=== PATIENT | female | born 1980 | race Caucasian/White ===

== ENCOUNTER 2016-10-13 21:13 | Emergency (ER) | payer SELFPAY ==
[2016-10-13 21:20] VITALS: BP 109/51; BMI 21.4
[2016-10-13] MEDS ORDERED: TORADOL 30 MG VIAL IVP ONE (21:44)
--- NOTE | 2016-10-13 21:45 | DR.GENAD ---
HPI - PCP Primary Care Physician: nfd - Complaint/Symptoms Chief Complaint Doctors Comments: Complain of right flank pain onset sever hours ago. Pain is severe, not relieve by medication, History of stones. Chief Complaint:: pt c/o rt flank pain and urinary frequency - Source History Provided: Patient - Mode of Arrival Mode of Arrival: Ambulatory - Timing Onset of Chief Complaint: 10/13/16 PMH - PMH Past Medical History: Yes Past Medical History: Kidney Stones Past Surgical History: Yes Surgical History: Appendectomy - Family History History of Family Medical Conditions: Yes Family Medical History: Cancer, Coronary Artery Disease, Heart Failure - Social History Does any household member use tobacco: Yes Alcohol Use: None Do you use any recreational Drugs:: No Lives With: Family Lives Where: Home - infectious screening In the last 2 months have you had wt loss of >10#?: NO Have you had fever, night sweats or hemotysis?: No Have you traveled outside the country in the last 6 months?: No Isolation: Standard ROS - Review of Systems Constitutional: No Symptoms Reported Eyes: No Symptoms Reported ENTM: No Symptoms Reported Respiratoy: No Symptoms Reported Cardiovascular: No Symptoms Reported Gastrointestinal/Abdominal: No Symptoms Reported Genitourinary: No Symptoms Reported Neurological: No Symptoms Reported Musculoskeletal: No Symptoms Reported Integumentary: No Symptoms Reported Hematologic/Lymphatic: No Symptoms Reported Endocrine: No Symptoms Reported Psychiatric: No Symptoms Reported All Other Systems: Reviewed and Negative PE - Vital Signs Vitals: Temperature 97.9 F Pulse Rate 100 Respiratory Rate 18 Blood Pressure [Left Arm] 129/87 Blood Pressure 109/51 O2 Sat by Pulse Oximetry 100 - General Limitations: No Limitations General Appearance: Alert, In No Apparent Distress, Anxious - Head Head Exam: Normal Inspection, Atraumatic - Eyes Eye exam: Normal Appearance, PERRL, EOMI - ENT ENT Exam: Normal Exam External Ear Exam: Normal External Inspection TM/Canal Exam: Bilateral Normal Nose Exam: Normal Nose Exam Mouth Exam: Normal Inspection Throat Exam: Normal Inspection - Neck Neck Exam: Normal Inspection - Chest Chest Inspection: Normal Inspection - Respiratory Respiratory Exam: Normal Lung Sounds Bilat Respiratory Exam: Bilateral Clear to Auscultation - Cardiovascular Cardiovascular Exam: Regular Rate, Normal Rhythm - Abdominal Exam Abdominal Exam: Soft, Tenderness (RLQ), Other (right flank pain) - Neurologic Neurological Exam: Alert, Oriented X3, CN II-XII Intact - Psychiatric Psychiatric Exam: Normal Affect, Normal Mood Course - Reevaluation 1st: Improved ROR - Labs Reviewed Laboratory Results Reviewed?: Yes (Urine: 5+blood, 15-20 wbc) Laboratory: Specimen Type Clean catch urine 10/13/16 21:19 Urine Color [place] (YELLOW) 10/13/16 21:19 Urine Appearance Clear (CLEAR) 10/13/16 21:19 Urine pH 7.0 (5.0 - 8.0) 10/13/16 21:19 Ur Specific [place] 1.000 (1.000-1.030) 10/13/16 21:19 Urine Protein 1+ (NEGATIVE) 10/13/16 21:19 Urine Glucose (UA) Negative (NEGATIVE) 10/13/16 21:19 Urine Ketones Negative (NEGATIVE) 10/13/16 21:19 Urine Occult Blood 5+ (NEGATIVE) 10/13/16 21:19 Urine Nitrite Negative (NEGATIVE) 10/13/16 21:19 Urine Bilirubin Negative (NEGATIVE) 10/13/16 21:19 Urine Urobilinogen Normal (NORMAL) 10/13/16 21:19 Ur Leukocyte Esterase Negative (NEGATIVE) 10/13/16 21:19 Urine RBC None seen /HPF (NEGATIVE) 10/13/16 21:19 Urine WBC 15-20 /HPF (NEGATIVE) 10/13/16 21:19 Ur Squamous Epith Cells Rare /HPF (NEGATIVE) 10/13/16 21:19 Urine Bacteria Trace /HPF (NEGATIVE) 10/13/16 21:19 Ur Culture Indicated? No/not indicated 10/13/16 21:19 - XRAY XRAY Interpreted by: Radiologist (CT Abdomen/Pelvis: Normal abdomen and pelvis) - Diagnosis Discharge Problem: UTI (urinary tract infection) Qualifiers: Urinary tract infection type: acute cystitis Hematuria presence: with hematuria Qualified Code(s): N30.01 - Acute cystitis with hematuria - Discharge Plan Condition: Stable - Follow ups/Referrals Follow ups/Referrals: NFD,None [Primary Care Provider] - 3 days - Instructions
[2016-10-13] MEDS ORDERED: NS 1000 ML 1,000 ML ONE (21:46)
[2016-10-13] MEDS ORDERED: TORADOL 30 MG VIAL ONE (21:46)
[2016-10-13 21:58] LABS: BILIRUBIN,URINE NEGATIVE (NEGATIVE); BLOOD/HEMOGLOBIN,URINE 5+ (NEGATIVE); GLUCOSE, URINE NEGATIVE (NEGATIVE); KETONES,URINE NEGATIVE (NEGATIVE); LEUKOCYTE ESTERASE ,URINE NEGATIVE (NEGATIVE); NITRITES,URINE NEGATIVE (NEGATIVE); PROTEIN,URINE 1+ (NEGATIVE); UROBILINOGEN,URINE NORMAL (NORMAL)
[2016-10-13] MEDS ORDERED: NS 1000 ML 1,000 ML IV SCH (22:00)
[2016-10-13 22:10] LABS: APPEARANCE,URINE CLEAR (CLEAR); COLOR,URINE PINK (YELLOW)
[2016-10-13 22:11] LABS: BACTERIA,URINE TRACE /HPF (NEGATIVE); RBC,URINE NONE SEEN /HPF (NEGATIVE); SQUAMOUS EPITHELIAL CELL,UR RARE /HPF (NEGATIVE)
[2016-10-13] MEDS ORDERED: MORPHINE SULFATE INJ 4 MG IVP ONE (22:12)
[2016-10-13] MEDS ORDERED: MORPHINE SULFATE INJ 4 MG ONE (22:14)
--- NOTE | 2016-10-13 23:10 | CT ---
EXAM: CT ABDOMEN AND PELVIS WITHOUT CONTRAST INDICATION: Right flank pain COMPARISION: No priors available for comparison TECHNIQUE: Axial CT examination of the abdomen and pelvis was performed without intravenous contrast. Coronal a nd sagittal reconstructions were created using the axial data. FINDINGS: The lung bases are clear. The liver, spleen, pancreas, adrenal glands, kidneys, and gallbladder are normal. There is no evidence of biliary ductal dilatation. The aorta and inferior vena cava are norm al in caliber. The bowel loops are nonobstructed. No abnormal mass, lymphadenopathy, or fluid collection. Urinary bladder is normal. The appendix has been removed. The uterus and adnexa appear unremarkable . The regional skeleton is intact. IMPRESSION: Normal CT examination of the abdomen and pelvis. Reported By:
== END 2016-10-13 23:25 | disposition home or self-care (01) ==
LOC: ER 21:13
DX: N30.01 Acute cystitis with hematuria (principal); R10.31 Right lower quadrant pain
CPT/HCPCS: 74176; 81001; 96365; 96367; 96374; 96375; 99283; A4222; J1885; J2270

== ENCOUNTER 2016-11-27 18:47 | Emergency (ER) | payer SELFPAY ==
[2016-11-27 18:53] VITALS: BP 123/74; BMI 21.4
--- NOTE | 2016-11-27 19:33 | DR.GENAD ---
HPI - PCP Primary Care Physician: nfd - Complaint/Symptoms Chief Complaint Doctors Comments: Patient admits to flu like symptoms for two days. Body aches, chills, cough, headache, sore throat Chief Complaint:: pt c/o flu like sx body aches sore throat fever chest hurts when taking a deep breath - Source History Provided: Patient - Mode of Arrival Mode of Arrival: Ambulatory - Timing Onset of Chief Complaint: 11/25/16 PMH - PMH Past Medical History: Yes Past Medical History: Kidney Stones Past Surgical History: Yes Surgical History: Appendectomy - Family History History of Family Medical Conditions: Yes Family Medical History: Cancer, Coronary Artery Disease, Heart Failure - Social History Type of Tobacco Use: Cigarettes Does any household member use tobacco: No Alcohol Use: None Do you use any recreational Drugs:: No Lives With: Family Lives Where: Home - infectious screening In the last 2 months have you had wt loss of >10#?: NO Have you had fever, night sweats or hemotysis?: No Have you traveled outside the country in the last 6 months?: No Isolation: Standard ROS - Review of Systems Constitutional: Chills, Fever, Fatigue. negative: Diaphoresis Eyes: No Symptoms Reported ENTM: Nose Discharge Respiratoy: Dry Cough Cardiovascular: No Symptoms Reported Gastrointestinal/Abdominal: No Symptoms Reported Genitourinary: No Symptoms Reported Neurological: Headache Musculoskeletal: Other (myalgia) Integumentary: No Symptoms Reported Hematologic/Lymphatic: No Symptoms Reported Endocrine: No Symptoms Reported Psychiatric: No Symptoms Reported All Other Systems: Reviewed and Negative PE - Vital Signs Vitals: Temperature 100 F Pulse Rate 92 Respiratory Rate 20 Blood Pressure [Left Arm] 129/87 Blood Pressure 123/74 O2 Sat by Pulse Oximetry 99 - General Limitations: No Limitations General Appearance: Alert, In No Apparent Distress - Head Head Exam: Normal Inspection, Atraumatic - Eyes Eye exam: Normal Appearance, PERRL, EOMI - ENT ENT Exam: Normal Exam, TM's Normal Bilaterally External Ear Exam: Normal External Inspection TM/Canal Exam: Bilateral Normal Nose Exam: Normal Nose Exam Mouth Exam: Normal Inspection Throat Exam: Normal Inspection - Neck Neck Exam: Normal Inspection, Full ROM - Chest Chest Inspection: Normal Inspection - Respiratory Respiratory Exam: Normal Lung Sounds Bilat Respiratory Exam: Bilateral Clear to Auscultation - Cardiovascular Cardiovascular Exam: Regular Rate, Normal Rhythm - Abdominal Exam Abdominal Exam: Normal Inspection Abdominal Tenderness: negative: RUQ, RLQ, LUQ, LLQ, Epigastrium, Suprapubic, Diffuse, Mild, Moderate, Severe, Other - Extremities Extremities Exam: Normal Inspection, Full ROM - Back Back Exam: Normal Inspection, Full ROM - Neurologic Neurological Exam: Alert, Oriented X3, CN II-XII Intact - Psychiatric Psychiatric Exam: Normal Affect - Skin Skin Exam: Warm, Dry, Intact Course - Reevaluation 1st: Improved ROR - Labs Reviewed Result Diagrams: 11/27/16 19:47 11/27/16 19:47 Laboratory: WBC 4.8 X10^3/uL (3.6-10.0) 11/27/16 19:47 RBC 4.32 X10^6/uL (3.5-5.4) 11/27/16 19:47 Hgb 13.1 g/dL (12.0-16.0) 11/27/16 19:47 Hct 38.7 % (36.0-47.0) 11/27/16 19:47 MCV 89.7 fL (80.0-100.0) 11/27/16 19:47 MCH 30.4 pg (27.0-34.0) 11/27/16 19:47 MCHC 33.9 g/dL (33.0-35.0) 11/27/16 19:47 RDW 14.1 % (11.6-16.5) 11/27/16 19:47 Plt Count 226 X10^3/uL (150.0-450.0) 11/27/16 19:47 MPV 8.3 fL (7.4-11.0) 11/27/16 19:47 Neut % 46.7 % (42.0-75.0) 11/27/16 19:47 Lymph % 40.9 % (21.0-51.0) 11/27/16 19:47 [place] % 11.6 % (0.0-13.0) 11/27/16 19:47 Eos % 0.1 % (0.9-2.9) L 11/27/16 19:47 Baso % 0.7 % (0.2-1.0) 11/27/16 19:47 Neut # 2.3 x10^3/uL (2.2-4.8) 11/27/16 19:47 Lymph # 2.0 X10^3/uL (1.3-2.9) 11/27/16 19:47 [place] # 0.6 x10^3/uL (0.3-0.8) 11/27/16 19:47 Eos # 0.0 x10^3/uL (0.0-0.2) 11/27/16 19:47 Baso # 0.0 X10^3/uL (0.0-0.1) 11/27/16 19:47 Absolute Nucleated RBC 0.1 /100WBC 11/27/16 19:47 Sodium 138 mmol/L (136-145) 11/27/16 19:47 Corrected Sodium TNP 11/27/16 19:47 Potassium 3.4 mmol/L (3.5-5.1) L 11/27/16 19:47 Chloride 103 mmol/L (98-107) 11/27/16 19:47 Carbon Dioxide 26.9 mmol/L (21-32) 11/27/16 19:47 BUN 7 mg/dL (7-18) 11/27/16 19:47 Creatinine 0.91 mg/dL (0.55-1.02) 11/27/16 19:47 Est GFR (MDRD) Af Amer > 60 (>60) 11/27/16 19:47 Est GFR (MDRD) Non-Af > 60 (>60) 11/27/16 19:47 Glucose 82 mg/dL (65-99) 11/27/16 19:47 Calcium 8.5 mg/dL (8.5-10.1) 11/27/16 19:47 Corrected Calcium TNP 11/27/16 19:47 Total Bilirubin 0.10 mg/dL (0.2-1.0) L 11/27/16 19:47 AST 25 Units/L (15-37) 11/27/16 19:47 ALT 19 Units/L (12-78) 11/27/16 19:47 Alkaline Phosphatase 56 Units/L (46-116) 11/27/16 19:47 Total Protein 6.9 g/dL (6.4-8.2) 11/27/16 19:47 Albumin 3.4 g/dL (3.4-5.0) 11/27/16 19:47 Globulin 3.5 g/dL (2.5-4.5) 11/27/16 19:47 Albumin/Globulin Ratio 1.0 Ratio (1.1-2.1) L 11/27/16 19:47 Influenza A (H1N1) PCR Not detected (NOT DETECT) 11/27/16 20:47 Influenza Type A (PCR) Negative (NEGATIVE) 11/27/16 20:47 Influenza Type B (PCR) Positive (NEGATIVE) A 11/27/16 20:47 Streptococcus Screen Negative (NEGATIVE) 11/27/16 19:56 - XRAY XRAY Interpreted by: Radiologist (Chest: Atypical pneumonia) - Diagnosis Discharge Problem: Influenza B - Discharge Plan Condition: Stable - Follow ups/Referrals Follow ups/Referrals: NFD,None [Primary Care Provider] - 3 days - Instructions
[2016-11-27] MEDS ORDERED: NS 1000 ML 1,000 ML IV ONE (19:35)
[2016-11-27] MEDS ORDERED: NS 1000 ML 1,000 ML ONE (19:40)
[2016-11-27 20:05] LABS: ALANINE AMINOTRANSFERASE 19 Units/L (12-78); ALBUMIN 3.4 g/dL (3.4-5.0); ALKALINE PHOSPHATASE 56 Units/L (46-116); ASPARTATE AMINO TRANSFERASE 25 Units/L (15-37); BLOOD UREA NITROGEN 7 mg/dL (7-18); CALCIUM 8.5 mg/dL (8.5-10.1); CARBON DIOXIDE 26.9 mmol/L (21-32); CHLORIDE 103 mmol/L (98-107); CREATININE 0.91 mg/dL (0.55-1.02); GLUCOSE 82 mg/dL (65-99); SODIUM 138 mmol/L (136-145); TOTAL PROTEIN 6.9 g/dL (6.4-8.2); eGFR BLACK RACES > 60 (>60); eGFR NON BLACK RACES > 60 (>60)
[2016-11-27 20:09] LABS: BASOPHILS % (AUTO) 0.7 % (0.2-1.0); EOSINOPHILS % (AUTO) 0.1 % (0.9-2.9); HEMATOCRIT 38.7 % (36.0-47.0); HEMOGLOBIN 13.1 g/dL (12.0-16.0); LYMPHOCYTES % (AUTO) 40.9 % (21.0-51.0); MEAN CORPUSCULAR HEMOGLOBIN 30.4 pg (27.0-34.0); MEAN CORPUSCULAR HGB CONC 33.9 g/dL (33.0-35.0); MEAN CORPUSCULAR VOLUME 89.7 fL (80.0-100.0); MEAN PLATELET VOLUME 8.3 fL (7.4-11.0); MONOCYTES # (AUTO) 0.6 x10^3/uL (0.3-0.8); MONOCYTES % (AUTO) 11.6 % (0.0-13.0); NEUTROPHILS # (AUTO) 2.3 x10^3/uL (2.2-4.8); NEUTROPHILS % (AUTO) 46.7 % (42.0-75.0); PLATELET COUNT 226 X10^3/uL (150.0-450.0); RED BLOOD COUNT 4.32 X10^6/uL (3.5-5.4); RED CELL DISTRIBUTION WIDTH 14.1 % (11.6-16.5); WHITE BLOOD COUNT 4.8 X10^3/uL (3.6-10.0)
[2016-11-27] MEDS ORDERED: POTASSIUM CHLORIDE LIQ 20 MEQ UDC PO ONE (20:12)
[2016-11-27] MEDS ORDERED: POTASSIUM CHLORIDE LIQ 20 MEQ UDC ONE (20:28)
--- NOTE | 2016-11-27 22:16 | RAD ---
HISTORY: Cough and flu symptoms Study: Single view of the chest. Comparison: None. Findings: The cardiomediastinal silhouette is normal. Bilateral perihilar interstitial prominence without foca l consolidation or effusion. Osseous structures demonstrate no acute abnormality. IMPRESSION: 1. Findings consistent with atypical pneumonia. Reported By:
== END 2016-11-27 22:58 | disposition home or self-care (01) ==
LOC: ER 19:02
DX: J11.1 Influenza due to unidentified influenza virus with other respiratory manifestations (principal); J18.8 Other pneumonia, unspecified organism
CPT/HCPCS: 36415; 71010; 80053; 85025; 87070; 87502; 87503; 87880; 96365; 99283; A4222

== ENCOUNTER 2017-04-09 09:54 | Emergency (ER) | payer SELFPAY ==
[2017-04-09 09:58] VITALS: BP 130/74; BMI 20.5
--- NOTE | 2017-04-09 10:34 | DR.GENAD ---
HPI - PCP Primary Care Physician: NFD - Complaint/Symptoms Chief Complaint Doctors Comments: Patient admits to vomiting and diarrhea for two days. Denies fever. Chief Complaint:: PATIENT STATED THAT YESTERDAY SHE STARTED GETTING REALLY SICK. SHE NOW CAN'T HOLD ANYTHING DOWN. - Source History Provided: Patient - Mode of Arrival Mode of Arrival: Ambulatory - Timing Onset of Chief Complaint: 04/08/17 PMH - PMH Past Medical History: Yes Past Medical History: Kidney Stones Past Surgical History: Yes Surgical History: Appendectomy - Family History History of Family Medical Conditions: Yes Family Medical History: Cancer, Coronary Artery Disease, Heart Failure - Social History Does patient currently use any type of tobacco product: Yes Have you used tobacco products in the last 12 months: Yes Type of Tobacco Use: Cigarettes Does any household member use tobacco: No Alcohol Use: None Do you use any recreational Drugs:: No Lives With: Family Lives Where: Home - infectious screening In the last 2 months have you had wt loss of >10#?: NO Have you had fever, night sweats or hemotysis?: No Have you traveled outside the country in the last 6 months?: No Isolation: Standard ROS - Review of Systems Constitutional: negative: Diaphoresis Eyes: No Symptoms Reported ENTM: No Symptoms Reported Respiratoy: No Symptoms Reported Cardiovascular: No Symptoms Reported Gastrointestinal/Abdominal: No Symptoms Reported, Abdominal Pain Genitourinary: No Symptoms Reported Neurological: No Symptoms Reported Musculoskeletal: No Symptoms Reported Integumentary: No Symptoms Reported Hematologic/Lymphatic: No Symptoms Reported Endocrine: No Symptoms Reported Psychiatric: No Symptoms Reported All Other Systems: Reviewed and Negative PE - Vital Signs Vitals: Temperature 98.5 F Pulse Rate 91 Respiratory Rate 20 Blood Pressure [Left Arm] 129/87 Blood Pressure 130/74 O2 Sat by Pulse Oximetry 99 - General Limitations: No Limitations General Appearance: Alert, In No Apparent Distress - Head Head Exam: Normal Inspection, Atraumatic - Eyes Eye exam: Normal Appearance, PERRL, EOMI. negative: Periorbital Swelling - ENT ENT Exam: Normal Exam, Normal Oropharynx, TM's Normal Bilaterally External Ear Exam: Normal External Inspection TM/Canal Exam: Bilateral Normal Nose Exam: Normal Nose Exam Mouth Exam: Normal Inspection Throat Exam: Normal Inspection - Neck Neck Exam: Normal Inspection, Full ROM - Chest Chest Inspection: Normal Inspection - Respiratory Respiratory Exam: Normal Lung Sounds Bilat Respiratory Exam: Bilateral Clear to Auscultation - Cardiovascular Cardiovascular Exam: Regular Rate, Normal Rhythm - Abdominal Exam Abdominal Exam: Normal Inspection, Normal Bowel Sounds Abdominal Tenderness: negative: RUQ, RLQ, LUQ, LLQ, Epigastrium, Suprapubic, Diffuse, Mild, Moderate, Severe, Other - Extremities Extremities Exam: Normal Inspection, Edema. negative: Normal Capillary Refill - Back Back Exam: Normal Inspection - Neurologic Neurological Exam: Alert, Oriented X3, CN II-XII Intact - Psychiatric Psychiatric Exam: Normal Affect, Normal Mood - Skin Skin Exam: Warm, Dry, Intact Course - Reevaluation 1st: Improved ROR - Labs Reviewed Result Diagrams: 04/09/17 10:45 04/09/17 10:45 Laboratory: WBC 9.3 X10^3/uL (3.6-10.0) 04/09/17 10:45 RBC 4.70 X10^6/uL (3.5-5.4) 04/09/17 10:45 Hgb 14.7 g/dL (12.0-16.0) 04/09/17 10:45 Hct 42.1 % (36.0-47.0) 04/09/17 10:45 MCV 89.7 fL (80.0-100.0) 04/09/17 10:45 MCH 31.4 pg (27.0-34.0) 04/09/17 10:45 MCHC 35.0 g/dL (33.0-35.0) 04/09/17 10:45 RDW 13.2 % (11.6-16.5) 04/09/17 10:45 Plt Count 455 X10^3/uL (150.0-450.0) H 04/09/17 10:45 MPV 7.1 fL (7.4-11.0) L 04/09/17 10:45 Neut % 47.7 % (42.0-75.0) 04/09/17 10:45 Lymph % 44.5 % (21.0-51.0) 04/09/17 10:45 [place] % 5.8 % (0.0-13.0) 04/09/17 10:45 Eos % 0.6 % (0.9-2.9) L 04/09/17 10:45 Baso % 1.4 % (0.2-1.0) H 04/09/17 10:45 Neut # 4.4 x10^3/uL (2.2-4.8) 04/09/17 10:45 Lymph # 4.1 X10^3/uL (1.3-2.9) H 04/09/17 10:45 [place] # 0.5 x10^3/uL (0.3-0.8) 04/09/17 10:45 Eos # 0.1 x10^3/uL (0.0-0.2) 04/09/17 10:45 Baso # 0.1 X10^3/uL (0.0-0.1) 04/09/17 10:45 Absolute Nucleated RBC 0.0 /100WBC 04/09/17 10:45 Sodium 137 mmol/L (136-145) 04/09/17 10:45 Corrected Sodium TNP 04/09/17 10:45 Potassium 4.5 mmol/L (3.5-5.1) 04/09/17 10:45 Chloride 104 mmol/L (98-107) 04/09/17 10:45 Carbon Dioxide 24.9 mmol/L (21-32) 04/09/17 10:45 BUN 19 mg/dL (7-18) H 04/09/17 10:45 Creatinine 0.79 mg/dL (0.55-1.02) 04/09/17 10:45 Est GFR (MDRD) Af Amer > 60 (>60) 04/09/17 10:45 Est GFR (MDRD) Non-Af > 60 (>60) 04/09/17 10:45 Glucose 76 mg/dL (65-99) 04/09/17 10:45 Calcium 9.0 mg/dL (8.5-10.1) 04/09/17 10:45 C-Reactive Protein 2.00 mg/L (0-3.0) 04/09/17 10:45 - Diagnosis Discharge Problem: Gastroenteritis - Discharge Plan Condition: Stable - Follow ups/Referrals Follow ups/Referrals: NFD,None [Primary Care Provider] - 3 days - Instructions
[2017-04-09] MEDS ORDERED: NS 1000 ML 1,000 ML IV ONE (10:37)
[2017-04-09] MEDS ORDERED: NS 1000 ML 1,000 ML ONE (10:38)
[2017-04-09 10:58] LABS: BASOPHILS # (AUTO) 0.1 X10^3/uL (0.0-0.1); BASOPHILS % (AUTO) 1.4 % (0.2-1.0); EOSINOPHILS # (AUTO) 0.1 x10^3/uL (0.0-0.2); EOSINOPHILS % (AUTO) 0.6 % (0.9-2.9); HEMATOCRIT 42.1 % (36.0-47.0); HEMOGLOBIN 14.7 g/dL (12.0-16.0); LYMPHOCYTES # (AUTO) 4.1 X10^3/uL (1.3-2.9); LYMPHOCYTES % (AUTO) 44.5 % (21.0-51.0); MEAN CORPUSCULAR HEMOGLOBIN 31.4 pg (27.0-34.0); MEAN CORPUSCULAR VOLUME 89.7 fL (80.0-100.0); MEAN PLATELET VOLUME 7.1 fL (7.4-11.0); MONOCYTES # (AUTO) 0.5 x10^3/uL (0.3-0.8); MONOCYTES % (AUTO) 5.8 % (0.0-13.0); NEUTROPHILS # (AUTO) 4.4 x10^3/uL (2.2-4.8); NEUTROPHILS % (AUTO) 47.7 % (42.0-75.0); PLATELET COUNT 455 X10^3/uL (150.0-450.0); RED CELL DISTRIBUTION WIDTH 13.2 % (11.6-16.5); WHITE BLOOD COUNT 9.3 X10^3/uL (3.6-10.0)
[2017-04-09 11:04] LABS: BLOOD UREA NITROGEN 19 mg/dL (7-18); CARBON DIOXIDE 24.9 mmol/L (21-32); CHLORIDE 104 mmol/L (98-107); CREATININE 0.79 mg/dL (0.55-1.02); SODIUM 137 mmol/L (136-145); eGFR BLACK RACES > 60 (>60); eGFR NON BLACK RACES > 60 (>60)
[2017-04-09] MEDS ORDERED: ZOFRAN INJ 4 MG VIAL ONE (11:19)
[2017-04-09] MEDS ORDERED: ZOFRAN INJ 4 MG VIAL IVP ONE (11:19)
== END 2017-04-09 11:58 | disposition home or self-care (01) ==
LOC: ER 10:06
DX: K52.89 Other specified noninfective gastroenteritis and colitis (principal)
CPT/HCPCS: 36415; 80048; 85025; 86140; 96365; 96374; 99283; A4222; J2405

== ENCOUNTER 2017-07-15 15:35 | Emergency (ER) | payer SELFPAY ==
[2017-07-15] MEDS ORDERED: MORPHINE SULFATE INJ 4 MG ONE ×2 (15:53→17:57)
[2017-07-15 15:54] VITALS: BMI 22.3
[2017-07-15] MEDS ORDERED: MORPHINE SULFATE INJ 4 MG IVP ONE ×2 (15:55→17:54)
[2017-07-15 16:15] LABS: BASOPHILS # (AUTO) 0.1 X10^3/uL (0.0-0.1); BASOPHILS % (AUTO) 0.5 % (0.2-1.0); EOSINOPHILS # (AUTO) 0.1 x10^3/uL (0.0-0.2); EOSINOPHILS % (AUTO) 0.7 % (0.9-2.9); HEMATOCRIT 43.5 % (36.0-47.0); HEMOGLOBIN 14.9 g/dL (12.0-16.0); LYMPHOCYTES # (AUTO) 6.9 X10^3/uL (1.3-2.9); LYMPHOCYTES % (AUTO) 31.4 % (21.0-51.0); MEAN CORPUSCULAR HEMOGLOBIN 31.6 pg (27.0-34.0); MEAN CORPUSCULAR HGB CONC 34.2 g/dL (33.0-35.0); MEAN CORPUSCULAR VOLUME 92.4 fL (80.0-100.0); MEAN PLATELET VOLUME 7.4 fL (7.4-11.0); MONOCYTES # (AUTO) 1.1 x10^3/uL (0.3-0.8); MONOCYTES % (AUTO) 5.2 % (0.0-13.0); NEUTROPHILS # (AUTO) 13.6 x10^3/uL (2.2-4.8); NEUTROPHILS % (AUTO) 62.2 % (42.0-75.0); PLATELET COUNT 473 X10^3/uL (150.0-450.0); RED CELL DISTRIBUTION WIDTH 13.2 % (11.6-16.5); WHITE BLOOD COUNT 21.8 X10^3/uL (3.6-10.0)
--- NOTE | 2017-07-15 16:25 | DR.GENAD ---
HPI - PCP Primary Care Physician: TANIKA - Complaint/Symptoms Chief Complaint:: PT C/O LLQ PAIN THAT STARTED LAST NIGHT. PT STATES SHE HAS BEEN HAVING BLOODY STOOL. - Source History Provided: Patient - Mode of Arrival Mode of Arrival: Ambulatory - Timing Onset of Chief Complaint: 07/14/17 PMH - PMH Past Medical History: Yes Past Medical History: Kidney Stones Past Medical History Comment: COLITIS Past Surgical History: Yes Surgical History: Appendectomy - Family History History of Family Medical Conditions: Yes Family Medical History: Cancer, Coronary Artery Disease, Heart Failure - Social History Does patient currently use any type of tobacco product: Yes Have you used tobacco products in the last 12 months: Yes Type of Tobacco Use: Cigarettes Does any household member use tobacco: Yes Alcohol Use: None Do you use any recreational Drugs:: No Lives With: Family Lives Where: Home - infectious screening In the last 2 months have you had wt loss of >10#?: NO Have you had fever, night sweats or hemotysis?: No Have you traveled outside the country in the last 6 months?: No Isolation: Standard ROS - Review of Systems Constitutional: No Symptoms Reported Eyes: No Symptoms Reported ENTM: No Symptoms Reported Respiratoy: No Symptoms Reported Cardiovascular: No Symptoms Reported Gastrointestinal/Abdominal: Abdominal Pain Genitourinary: No Symptoms Reported Neurological: No Symptoms Reported Musculoskeletal: No Symptoms Reported Integumentary: No Symptoms Reported Hematologic/Lymphatic: No Symptoms Reported Endocrine: No Symptoms Reported Psychiatric: No Symptoms Reported All Other Systems: Reviewed and Negative PE - Vital Signs Vitals: Temperature 97.8 F Pulse Rate [Right Radial] 76 Pulse Rate 122 Respiratory Rate 18 Blood Pressure [Left Arm] 136/82 Blood Pressure 184/110 O2 Sat by Pulse Oximetry 99 - General Limitations: No Limitations General Appearance: Alert - Head Head Exam: Atraumatic - Eyes Eye exam: Normal Appearance, PERRL, EOMI - ENT ENT Exam: Normal Exam External Ear Exam: Normal External Inspection TM/Canal Exam: Bilateral Normal Nose Exam: Normal Nose Exam Mouth Exam: Normal Inspection Throat Exam: Normal Inspection - Neck Neck Exam: Normal Inspection, Full ROM - Chest Chest Inspection: Normal Inspection, Symmetric Chest Wall Rise - Respiratory Respiratory Exam: Normal Lung Sounds Bilat Respiratory Exam: Bilateral Clear to Auscultation - Cardiovascular Cardiovascular Exam: Regular Rate, Normal Rhythm - Abdominal Exam Abdominal Exam: Normal Inspection, Normal Bowel Sounds Abdominal Tenderness: Epigastrium - Extremities Extremities Exam: Normal Inspection, Full ROM - Back Back Exam: Normal Inspection, Full ROM - Neurologic Neurological Exam: Alert, Oriented X3, CN II-XII Intact - Psychiatric Psychiatric Exam: Normal Affect - Skin Skin Exam: Warm, Dry Course - Reevaluation 1st: Improved ROR - Labs Reviewed Laboratory Results Reviewed?: Yes (Stool hemocult negative) Result Diagrams: 07/15/17 15:45 07/15/17 15:45 Laboratory: WBC 21.8 X10^3/uL (3.6-10.0) H 07/15/17 15:45 RBC 4.70 X10^6/uL (3.5-5.4) 07/15/17 15:45 Hgb 14.9 g/dL (12.0-16.0) 07/15/17 15:45 Hct 43.5 % (36.0-47.0) 07/15/17 15:45 MCV 92.4 fL (80.0-100.0) 07/15/17 15:45 MCH 31.6 pg (27.0-34.0) 07/15/17 15:45 MCHC 34.2 g/dL (33.0-35.0) 07/15/17 15:45 RDW 13.2 % (11.6-16.5) 07/15/17 15:45 Plt Count 473 X10^3/uL (150.0-450.0) H 07/15/17 15:45 Plt Count Comment Increased (ADEQUATE) A 07/15/17 15:45 MPV 7.4 fL (7.4-11.0) 07/15/17 15:45 Neut % 62.2 % (42.0-75.0) 07/15/17 15:45 Lymph % 31.4 % (21.0-51.0) 07/15/17 15:45 [place] % 5.2 % (0.0-13.0) 07/15/17 15:45 Eos % 0.7 % (0.9-2.9) L 07/15/17 15:45 Baso % 0.5 % (0.2-1.0) 07/15/17 15:45 Neut # 13.6 x10^3/uL (2.2-4.8) H 07/15/17 15:45 Lymph # 6.9 X10^3/uL (1.3-2.9) H 07/15/17 15:45 [place] # 1.1 x10^3/uL (0.3-0.8) H 07/15/17 15:45 Eos # 0.1 x10^3/uL (0.0-0.2) 07/15/17 15:45 Baso # 0.1 X10^3/uL (0.0-0.1) 07/15/17 15:45 Absolute Nucleated RBC 0.1 /100WBC 07/15/17 15:45 Total Counted 100 07/15/17 15:45 Neutrophils % (Manual) 58 % (39-76) 07/15/17 15:45 Band Neutrophils % 1 % (0-10) 07/15/17 15:45 Lymphocytes % (Manual) 35 % (13-43) 07/15/17 15:45 Monocytes % (Manual) 5 % (4-9) 07/15/17 15:45 Eosinophils % (Manual) 1 % (0-6) 07/15/17 15:45 Plt Morphology Comment Normal (NORMAL) 07/15/17 15:45 RBC Morphology Normal (NORMAL) 07/15/17 15:45 Sodium 136 mmol/L (136-145) 07/15/17 15:45 Corrected Sodium TNP 07/15/17 15:45 Potassium 4.0 mmol/L (3.5-5.1) 07/15/17 15:45 Chloride 101 mmol/L (98-107) 07/15/17 15:45 Carbon Dioxide 26.7 mmol/L (21-32) 07/15/17 15:45 BUN 9 mg/dL (7-18) 07/15/17 15:45 Creatinine 0.84 mg/dL (0.55-1.02) 07/15/17 15:45 Est GFR (MDRD) Af Amer > 60 (>60) 07/15/17 15:45 Est GFR (MDRD) Non-Af > 60 (>60) 07/15/17 15:45 Glucose 106 mg/dL (65-99) H 07/15/17 15:45 Calcium 9.2 mg/dL (8.5-10.1) 07/15/17 15:45 Corrected Calcium TNP 07/15/17 15:45 Total Bilirubin 0.20 mg/dL (0.2-1.0) 07/15/17 15:45 AST 17 Units/L (15-37) 07/15/17 15:45 ALT 19 Units/L (12-78) 07/15/17 15:45 Alkaline Phosphatase 64 Units/L (46-116) 07/15/17 15:45 C-Reactive Protein 1.30 mg/L (0-3.0) 07/15/17 15:45 Total Protein 8.1 g/dL (6.4-8.2) 07/15/17 15:45 Albumin 4.2 g/dL (3.4-5.0) 07/15/17 15:45 Globulin 3.9 g/dL (2.5-4.5) 07/15/17 15:45 Albumin/Globulin Ratio 1.1 Ratio (1.1-2.1) 07/15/17 15:45 Amylase 42 Units/L (25-115) 07/15/17 15:45 Lipase 104 Units/L (73-393) 07/15/17 15:45 Specimen Type Clean catch urine 07/15/17 17:16 Urine Color Pale yellow (YELLOW) 07/15/17 17:16 Urine Appearance Clear (CLEAR) 07/15/17 17:16 Urine pH 6.5 (5.0 - 8.0) 07/15/17 17:16 Ur Specific [place] 1.010 (1.000-1.030) 07/15/17 17:16 Urine Protein Negative (NEGATIVE) 07/15/17 17:16 Urine Glucose (UA) Negative (NEGATIVE) 07/15/17 17:16 Urine Ketones Negative (NEGATIVE) 07/15/17 17:16 Urine Occult Blood 1+ (NEGATIVE) 07/15/17 17:16 Urine Nitrite Negative (NEGATIVE) 07/15/17 17:16 Urine Bilirubin Negative (NEGATIVE) 07/15/17 17:16 Urine Urobilinogen Normal (NORMAL) 07/15/17 17:16 Ur Leukocyte Esterase Negative (NEGATIVE) 07/15/17 17:16 Urine RBC Rare /HPF (NEGATIVE) 07/15/17 17:16 Urine WBC Rare /HPF (NEGATIVE) 07/15/17 17:16 Ur Squamous Epith Cells Rare /HPF (NEGATIVE) 07/15/17 17:16 Urine Bacteria Negative /HPF (NEGATIVE) 07/15/17 17:16 Ur Culture Indicated? No/not indicated 07/15/17 17:16 Stool Description Fob 07/15/17 17:38 Stl Occult Blood (IFOB) Negative (NEGATIVE) 07/15/17 17:38 Stool for White Cells Cancelled 07/15/17 17:16 H. pylori IgG Antibody Negative (NEGATIVE) 07/15/17 15:45 - Diagnosis Discharge Problem: Abdominal pain Qualifiers: Abdominal location: epigastric Qualified Code(s): R10.13 - Epigastric pain - Discharge Plan Condition: Stable - Follow ups/Referrals Follow ups/Referrals: NFD,None [Primary Care Provider] - 3 days - Instructions
[2017-07-15] MEDS ORDERED: NS 1000 ML 1,000 ML IV ONE (16:26)
[2017-07-15 16:29] LABS: BAND NEUTROPHILS % 1 % (0-10)
[2017-07-15 16:30] LABS: PLATELET MORPHOLOGY COMMENT NORMAL (NORMAL)
[2017-07-15 16:46] LABS: ALANINE AMINOTRANSFERASE 19 Units/L (12-78); ALBUMIN 4.2 g/dL (3.4-5.0); ALKALINE PHOSPHATASE 64 Units/L (46-116); AMYLASE 42 Units/L (25-115); ASPARTATE AMINO TRANSFERASE 17 Units/L (15-37); BLOOD UREA NITROGEN 9 mg/dL (7-18); CALCIUM 9.2 mg/dL (8.5-10.1); CARBON DIOXIDE 26.7 mmol/L (21-32); CHLORIDE 101 mmol/L (98-107); CREATININE 0.84 mg/dL (0.55-1.02); LIPASE 104 Units/L (73-393); SODIUM 136 mmol/L (136-145); TOTAL PROTEIN 8.1 g/dL (6.4-8.2); eGFR BLACK RACES > 60 (>60); eGFR NON BLACK RACES > 60 (>60)
[2017-07-15 17:28] LABS: BILIRUBIN,URINE NEGATIVE (NEGATIVE); BLOOD/HEMOGLOBIN,URINE 1+ (NEGATIVE); GLUCOSE, URINE NEGATIVE (NEGATIVE); KETONES,URINE NEGATIVE (NEGATIVE); LEUKOCYTE ESTERASE ,URINE NEGATIVE (NEGATIVE); NITRITES,URINE NEGATIVE (NEGATIVE); PH,URINE 6.5 (5.0 - 8.0); PROTEIN,URINE NEGATIVE (NEGATIVE); UROBILINOGEN,URINE NORMAL (NORMAL)
[2017-07-15 17:39] LABS: APPEARANCE,URINE CLEAR (CLEAR); BACTERIA,URINE NEGATIVE /HPF (NEGATIVE); COLOR,URINE PALE YELLOW (YELLOW); RBC,URINE RARE /HPF (NEGATIVE); SQUAMOUS EPITHELIAL CELL,UR RARE /HPF (NEGATIVE)
[2017-07-15] MEDS ORDERED: NS 1000 ML 1,000 ML ONE (18:04)
[2017-07-15 18:11] VITALS: BP 136/82
[2017-07-15] MEDS ORDERED: NS 100 ML IV 100 ML IV ONE (18:55)
--- NOTE | 2017-07-15 19:18 | CT ---
HISTORY: Left lower quadrant abdominal pain Study: CT abdomen pelvis with contrast Comparison: 10/13/2016 Technique: Axial post-contrast images with coronal and sagittal reformats. Dose reduction procedures were used with mA/kv adjusted for body size. Findings: The lung bases are clear. The liver, spleen, adrenal glands, and pancreas are within normal limits. T here is a benign hepatic cyst present. No opaque stones are visible within the gallbladder. The kidne ys are unobstructed and without masses or stones. No ureteral calculi are identified. The appendix is surgically absent by history. No significant intraperitoneal or retroperitoneal lymphadenopathy is i dentified. There are no findings suggestive of diverticulitis or colitis. Examination of the pelvis d emonstrated no evidence for pelvic masses, pelvic fluid, or pelvic lymphadenopathy. No bladder abnorm ality is identified. No lytic or blastic skeletal lesions are identified. IMPRESSION: No significant abnormality identified Reported By:
== END 2017-07-15 19:40 | disposition home or self-care (01) ==
LOC: ER 15:59
DX: R10.13 Epigastric pain (principal)
CPT/HCPCS: 36415; 74177; 80053; 81001; 82150; 82270; 83690; 85025; 86140; 86677; 96365; 96374; 96375; 99283; A4222; J2270

== ENCOUNTER 2017-09-15 08:30 | Emergency (ER) | payer SELFPAY ==
[2017-09-15 08:39] VITALS: BP 118/72; BMI 21.4
--- NOTE | 2017-09-15 09:01 | DR.GENAD ---
HPI - PCP Primary Care Physician: NFD - Complaint/Symptoms Chief Complaint Doctors Comments: Patient admits to ear infections since young child. She admits to pain of the left ear. She denies otorrhea. Chief Complaint:: PT IS C/O LEFT EAR PAIN FOR 3 DAYS AND DIZZINESS FOR 3 DAYS - Source History Provided: Patient - Mode of Arrival Mode of Arrival: Ambulatory - Timing Onset of Chief Complaint: 09/12/17 PMH - PMH Past Medical History: Yes Past Medical History: Kidney Stones Past Surgical History: Yes Surgical History: Appendectomy Past Surgical History Comment: EAR SURGERY - Family History History of Family Medical Conditions: Yes Family Medical History: Cancer, Coronary Artery Disease, Heart Failure - Social History Does patient currently use any type of tobacco product: Yes Have you used tobacco products in the last 12 months: Yes Type of Tobacco Use: Cigarettes Does any household member use tobacco: No Alcohol Use: None Do you use any recreational Drugs:: No Lives With: Family Lives Where: Home - infectious screening In the last 2 months have you had wt loss of >10#?: NO Have you had fever, night sweats or hemotysis?: No Have you traveled outside the country in the last 6 months?: No Isolation: Standard ROS - Review of Systems Constitutional: No Symptoms Reported Eyes: No Symptoms Reported ENTM: Ear Pain (left) Respiratoy: No Symptoms Reported Cardiovascular: No Symptoms Reported Gastrointestinal/Abdominal: No Symptoms Reported Genitourinary: No Symptoms Reported Neurological: No Symptoms Reported Musculoskeletal: No Symptoms Reported Integumentary: No Symptoms Reported Hematologic/Lymphatic: No Symptoms Reported Endocrine: No Symptoms Reported Psychiatric: No Symptoms Reported All Other Systems: Reviewed and Negative PE - Vital Signs Vitals: Temperature 97.2 F Pulse Rate 95 Respiratory Rate 20 Blood Pressure [Left Arm] 136/82 Blood Pressure 118/72 O2 Sat by Pulse Oximetry 100 - General Limitations: No Limitations General Appearance: Alert, In No Apparent Distress - Head Head Exam: Normal Inspection, Atraumatic - Eyes Eye exam: Normal Appearance, PERRL, EOMI - ENT ENT Exam: negative: TM's Normal Bilaterally (Left tragus,auricle elicits tenderness, TM red, proximal canal erythematous) External Ear Exam: Normal External Inspection, Pain with Movement, External Tenderness TM/Canal Exam: Left Normal Nose Exam: Normal Nose Exam Mouth Exam: Normal Inspection Throat Exam: Normal Inspection - Neck Neck Exam: Normal Inspection, Full ROM - Chest Chest Inspection: Normal Inspection - Respiratory Respiratory Exam: Normal Lung Sounds Bilat Respiratory Exam: Bilateral Clear to Auscultation - Cardiovascular Cardiovascular Exam: Regular Rate, Normal Rhythm - Abdominal Exam Abdominal Exam: Normal Inspection, Normal Bowel Sounds Abdominal Tenderness: negative: RUQ, RLQ, LUQ, LLQ, Epigastrium, Suprapubic, Diffuse, Mild, Moderate, Severe, Other - Extremities Extremities Exam: Normal Inspection, Full ROM - Back Back Exam: Normal Inspection, Full ROM - Neurologic Neurological Exam: Alert, Oriented X3, CN II-XII Intact - Psychiatric Psychiatric Exam: Normal Affect - Skin Skin Exam: Warm, Dry, Intact Course - Education/Counseling Educated On: Treatment, Diagnosis, Prognosis - Diagnosis Discharge Problem: Otitis externa Qualifiers: Otitis externa type: diffuse Chronicity: acute Laterality: left Qualified Code( s): H60.312 - Diffuse otitis externa, left ear Otitis media Qualifiers: Otitis media type: suppurative Chronicity: acute Laterality: left Recurrence: not specified as recurrent Spontaneous tympanic membrane rupture: without spontaneous rupture Qualified Code(s): H66.002 - Acute suppurative otitis media without spontaneous rupture of ear drum, left ear - Discharge Plan Condition: Stable - Follow ups/Referrals Follow ups/Referrals: NFD,None [Primary Care Provider] - 3 days - Instructions
== END 2017-09-15 09:14 | disposition home or self-care (01) ==
LOC: ER 08:42
DX: H60.312 Diffuse otitis externa, left ear (principal); H66.002 Acute suppurative otitis media without spontaneous rupture of ear drum, left ear
CPT/HCPCS: 99281; 99282

== ENCOUNTER → 2017-09-18 | Outpatient (CLI) | payer SELFPAY ==
[2017-09-15 08:39] VITALS: BP 118/72
--- NOTE | 2017-09-18 21:34 | RAD ---
Lumbar spine, three views Indication: Congenital disc disease, lower back pain Comparison: None Findings: Vertebral body heights and alignment are normal. No acute fracture or subluxation is identi fied. No significant degenerative changes are appreciated. SI joints are unremarkable. Impression: Negative exam. Reported By:
== END | disposition home or self-care (01) | DRG 552 ==
LOC: RAD 16:40
PROVIDERS: ATTEND Internal Medicine
DX: M54.5 Low back pain (principal)
CPT/HCPCS: 72100